=== PATIENT | female | born 1970 | race African-American/Black ===

== ENCOUNTER 2016-09-04 09:57 | Emergency (ER) | payer BC, OTHER ==
--- NOTE | 2016-09-04 10:07 | ER Document Report ---
ED Medical Screen (RME) - General Stated Complaint: SORE THROAT Mode of Arrival: Ambulatory Information source: Patient Notes: pt c/o sore throat for the past two days. pt also c/o right ear pain - Related Data Allergies/Adverse Reactions: No Known Allergies Allergy (Verified 09/04/16 10:04) Past Medical History - Past Medical History Cardiac Medical History: Reports: Hx Hypertension Pulmonary Medical History: Reports: Hx Bronchitis Endocrine Medical History: Reports: Hx Diabetes Mellitus Type 2 - NIDDM - Immunizations Hx Diphtheria, Pertussis, Tetanus Vaccination: Yes Physical Exam - Vital signs Vitals: Temp Pulse Resp BP Pulse Ox 99.0 F 89 17 152/100 H 98 09/04/16 10:03 09/04/16 10:03 09/04/16 10:03 09/04/16 10:03 09/04/16 10:03 - General General appearance: Appears well, Alert In distress: None Course - Vital Signs Vital signs: Temp Pulse Resp BP Pulse Ox 99.0 F 89 17 152/100 H 98 09/04/16 10:03 09/04/16 10:03 09/04/16 10:03 09/04/16 10:03 09/04/16 10:03
--- NOTE | 2016-09-04 11:16 | ER Document Report ---
HPI - HPI Patient complains to provider of: sore throat Onset: Other - 2 days Onset/Duration: Gradual Pain Level: 4 Context: 45-year-old diabetic hypertensive female complaining of sore throat right ear pain without a fever for 2 days. No dizziness or vertigo. No loss of hearing. No chest pain or shortness of breath. No nausea vomiting or diarrhea. No abdominal pain. She has not taken her antihypertensive today. Associated Symptoms: None Exacerbated by: Denies Relieved by: Denies Similar symptoms previously: No Recently seen / treated by doctor: No - ROS ROS below otherwise negative: Yes Systems Reviewed and Negative: Yes All other systems reviewed and negative - REPRODUCTIVE Reproductive: DENIES: : - DERM Skin Color: Normal Past Medical History - General Information source: Patient - Social History Smoking Status: Never Smoker Chew tobacco use (# tins/day): No Frequency of alcohol use: None Drug Abuse: None Lives with: Family Family History: Reviewed & Not Pertinent Patient has suicidal ideation: No Patient has homicidal ideation: No - Past Medical History Cardiac Medical History: Reports: Hx Hypertension Pulmonary Medical History: Reports: Hx Bronchitis Endocrine Medical History: Reports: Hx Diabetes Mellitus Type 2 - NIDDM Renal/ Medical History: Denies: Hx Peritoneal Dialysis Surgical Hx: Negative - Immunizations Hx Diphtheria, Pertussis, Tetanus Vaccination: Yes Vertical Provider Document - CONSTITUTIONAL Agree With Documented VS: Yes Exam Limitations: No Limitations - INFECTION CONTROL TRAVEL OUTSIDE OF THE [place] IN LAST 30 DAYS: No - HEENT HEENT: Normocephalic, PERRLA, Pharyngeal Erythema - Minimal. negative: Conjuctival Injection, Tympanic Membrane Red, Tympanic Membrane Bulging - NECK Neck: Supple. negative: Lymphadenopathy-Left, Lymphadenopathy-Right - RESPIRATORY Respiratory: negative: Breath Sounds Normal, No Respiratory Distress O2 Sat by Pulse Oximetry: 98 - CARDIOVASCULAR Cardiovascular: negative: Regular Rate, Regular Rhythm - GI/ABDOMEN Gastrointestinal: Abdomen Soft, Abdomen Non-Tender, No Organomegaly - BACK Back: Normal Inspection. negative: CVA Tenderness-Right, CVA Tenderness-Left - MUSCULOSKELETAL/EXTREMETIES Musculoskeletal/Extremeties: SHIRA FROM - NEURO Level of Consciousness: Awake, Alert - DERM Integumentary: Warm, Dry, No Rash Course - Re-evaluation Re-evalutation: 09/04/16 11:20 Patient has a history of hypertension and she sees Dr. Logan and I will tell her to follow up about that since blood pressure reading was elevated today. She had not taken her blood pressure medication today at discharge 143/92 she will take the medication when she gets home. - Vital Signs Vital signs: Temp Pulse Resp BP Pulse Ox 99.0 F 89 20 152/100 H 98 09/04/16 10:03 09/04/16 10:03 09/04/16 10:20 09/04/16 10:03 09/04/16 10:03 Discharge - Discharge Clinical Impression: Upper respiratory disease, Elevated blood pressure reading Condition: Good Disposition: HOME, SELF-CARE Instructions: Upper Respiratory Illness ([facility]), Acetaminophen, Use of Over-The- Counter Ibuprofen ([facility]) Additional Instructions: to er if worse plenty of fluids rest Forms: Return to Work Referrals: ALEXIS SCHAEFER MD [Primary Care Provider] - Follow up as needed
[2016-09-04 11:20] VITALS: BP 143/92
== END 2016-09-04 11:23 | disposition home or self-care (01) ==
LOC: ER 09:57
DX: J06.9 Acute upper respiratory infection, unspecified (principal); I10 Essential (primary) hypertension; H92.01 Otalgia, right ear; E11.9 Type 2 diabetes mellitus without complications
CPT/HCPCS: 99283